=== PATIENT | male | born 1970 | race Hispanic/Latino ===

== ENCOUNTER 2019-09-28 19:25 | Emergency (ER) | payer OTHER, SELFPAY ==
[2019-09-28] MEDS ORDERED: TETANUS/DIPHTHERIA TOXOID [ADULT] 0.5 ML VIAL IM ONE (19:48)
[2019-09-28] MEDS ORDERED: OCTYL 2-CYANOACRYLATE 1 EACH TP ONE (19:52)
[2019-09-28] MEDS ORDERED: CEFAZOLIN SODIUM 1 GM VIAL ONE (20:58)
[2019-09-28] MEDS ORDERED: GENTAMICIN SULFATE 80 MG/2 ML VIAL ONE (20:58)
[2019-09-28] MEDS ORDERED: SODIUM CHLORIDE 0.9% 50 ML IV ONE (20:59)
[2019-09-28 21:21] LABS: BASOPHILS % (AUTO) 0.9 % (0.0-5.0); EOSINOPHILS % (AUTO) 9.6 % (0.0-8.0); LYMPHOCYTES % (AUTO) 26.2 % (21.0-51.0); MEAN CORPUSCULAR HEMOGLOBIN 33.5 pg (27.0-33.0); MEAN CORPUSCULAR HGB CONC 34.2 g/dL (32.0-36.0); MEAN CORPUSCULAR VOLUME 97.8 fL (79-99); MONOCYTES % (AUTO) 8.9 % (3.0-13.0); PLATELET COUNT (AUTO) 177 K/uL (130-400); RED BLOOD CELL COUNT(AUTO) 5.11 MIL/uL (4.50-6.20); RED CELL DISTRIBUTION WIDTH 13.4 % (11.0-15.5)
[2019-09-28 21:24] LABS: APPEARANCE,URINE Clear (CLEAR); BILIRUBIN,URINE Negative (NEGATIVE); COLOR,URINE Yellow (YELLOW); GLUCOSE, URINE (UA) Negative (NEGATIVE); KETONES,URINE Negative (NEGATIVE); LEUKOCYTE ESTERASE ,URINE Negative (NEGATIVE); NITRATE,URINE Negative (NEGATIVE); OCCULT BLOOD,URINE Negative (NEGATIVE); PROTEIN,URINE Negative (NEGATIVE)
[2019-09-28 21:32] LABS: AMPHET/METH SCREEN,URINE NEGATIVE (NEGATIVE); BARBITURATE SCREEN, URINE NEGATIVE (NEGATIVE); BENZODIAZEPINES SCREEN,URINE NEGATIVE (NEGATIVE); CANNABINOID SCREEN,URINE NEGATIVE (NEGATIVE); COCAINE SCREEN,URINE POSITIVE (NEGATIVE); INR 0.94 (0.85-1.15); OPIATE SCREEN,URINE NEGATIVE (NEGATIVE); PARTIAL THROMBOPLASTIN TIME 27.4 SEC (26.3-35.5); PHENCYCLIDINE SCREEN,URINE NEGATIVE (NEGATIVE); PROTHROMBIN TIME 10.2 SEC (9.6-11.6)
[2019-09-28 21:45] LABS: CREATININE 0.8 mg/dL (0.5-1.5); POTASSIUM 4.2 mmol/L (3.5-5.1)
[2019-09-28] MEDS ORDERED: ONDANSETRON HCL 4 MG/2 ML VIAL ONE (21:49)
[2019-09-28] MEDS ORDERED: MORPHINE SULFATE 4 MG/1ML SYG ONE (21:49)
[2019-09-28 21:54] LABS: ALBUMIN 3.6 g/dL (3.5-5.0); BILIRUBIN,TOTAL 0.3 mg/dL (0.2-1.0); TOTAL PROTEIN, SERUM 8.4 g/dL (6.0-8.3)
== END 2019-09-28 22:18 | disposition left against medical advice (07) ==
LOC: EDH 19:25
DX: S82.102A Unspecified fracture of upper end of left tibia, initial encounter for closed fracture (principal); Z72.0 Tobacco use; X58.XXXA Exposure to other specified factors, initial encounter; Y93.89 Activity, other specified; Y92.098 Other place in other non-institutional residence as the place of occurrence of the external cause; Y99.8 Other external cause status
CPT/HCPCS: 36415; 71045; 73590; 80053; 80305; 81003; 84484; 85025; 85610; 85730; 90471; 90714; 93005; 96365; 96367; 96375; 99285; J0690; J1580; J2270; J2405

== ENCOUNTER 2020-12-22 05:17 | Emergency (ER) | payer SELFPAY ==
[~2020-12-22] VITALS: Ht 172.7 cm; Wt 112.5 kg
[2020-12-22 05:51] LABS: BASOPHILS % (AUTO) 0.5 % (0.0-5.0); EOSINOPHILS % (AUTO) 4.7 % (0.0-8.0); HEMATOCRIT 48.9 % (42-54); LYMPHOCYTES % (AUTO) 25.4 % (21.0-51.0); MEAN CORPUSCULAR HEMOGLOBIN 33.2 pg (27.0-33.0); MEAN CORPUSCULAR HGB CONC 33.3 g/dL (32.0-36.0); MEAN CORPUSCULAR VOLUME 99.6 fL (79-99); MONOCYTES % (AUTO) 7.9 % (3.0-13.0); NEUTROPHILS % (AUTO) 61.2 % (40.0-77.0); PLATELET COUNT (AUTO) 174 K/uL (130-400); RED BLOOD CELL COUNT(AUTO) 4.91 MIL/uL (4.50-6.20); RED CELL DISTRIBUTION WIDTH 13.7 % (11.0-15.5); WHITE BLOOD COUNT (AUTO) 7.5 K/uL (4.8-10.8)
[2020-12-22] MEDS ORDERED: MORPHINE 4 MG SYG IVP ONE (06:00)
[2020-12-22] MEDS ORDERED: ONDANSETRON 4MG INJ IVP ONE (06:00)
[2020-12-22] MEDS ORDERED: CEFTRIAXONE 1G VIAL IVP ONE (06:00)
[2020-12-22] MEDS ORDERED: LIDOCAINE HCL 2% JELLY 5 ML TP SCH (06:00)
[2020-12-22] MEDS ORDERED: HYDROMORPHONE 1 MG INJ ONE (06:18)
[2020-12-22] MEDS ORDERED: ACET1TAB25 PO (06:38)
[2020-12-22] MEDS ORDERED: SULF1TAB42 PO (06:38)
[2020-12-22] MEDS ORDERED: HYDROMORPHONE 1 MG INJ IVP SCH (07:00)
[2020-12-22] MEDS ORDERED: SULFAMETHOX-TMP DS 800/160 TAB PO SCH (07:00)
[2020-12-22 07:02] LABS: BILIRUBIN,TOTAL 0.7 mg/dL (0.2-1.0); CREATININE 0.7 mg/dL (0.5-1.5); POTASSIUM 4.3 mmol/L (3.5-5.1)
[2020-12-22 07:03] LABS: ALBUMIN 3.2 g/dL (3.5-5.0); TOTAL PROTEIN, SERUM 8.3 g/dL (6.0-8.3)
[2020-12-22 07:04] VITALS: BP 148/78
== END 2020-12-22 08:31 | disposition home or self-care (01) ==
LOC: EDH 05:17
DX: N61.1 Abscess of the breast and nipple (principal); F17.200 Nicotine dependence, unspecified, uncomplicated
CPT/HCPCS: 10060; 36415; 80053; 85025; 87070; 87076; 96374; 96375; 99284; J0696; J1170; J2270; J2405